=== PATIENT | female | born 1950 | race Caucasian/White ===

== ENCOUNTER 2019-11-02 20:28 | Inpatient (IN) | payer MEDICARE ==
[~2019-11-02] VITALS: Ht 167.6 cm; Wt 67.0 kg
--- NOTE | ~2019-11-02 | O ---
[facility] [place] [address] OPERATIVE REPORT Name: JIM RODRIGES Room #: 457-P [facility] IN ..#: [id number] Admission: 11/03/19 Attend Phys: Raúl Ahumada MD Discharge: Date of : 46 Report #: [id number] THIS REPORT FOR: cc: HEATHER - No family physician/PCP HEATHER - No family physician/PCP Kwesi Montes DO ~ CC: HEATHER physician/PCP Raúl Ahumada DATE OF SERVICE: 11/04/2019 PREOPERATIVE DIAGNOSES: 1. Left tibia shaft fracture. 2. Left distal radius fracture. POSTOPERATIVE DIAGNOSES: 1. Left tibia shaft fracture. 2. Left distal radius fracture. TITLE OF OPERATION: Left tibia fracture. PROCEDURES: 1. Closed reduction and intramedullary nail fixation. 2. Left distal radius closed reduction and short arm cast application. SURGEON: Kwesi Montes DO ASSISTANTS: None. ANESTHESIA: General. ANTIBIOTICS: 2 grams Ancef. ORTHOPEDIC IMPLANTS: Synthes EX tibial nail, size 11 mm x 330 mm. OPERATIVE INDICATIONS: The patient is a pleasant 69-year-old female who suffered a ground level fall and suffered a displaced left tibial shaft fracture. One week prior, she had taken a fall and had a displaced distal radius fracture. We reviewed her radiographs and discussed treatment options for both injuries. We also reviewed the risks, benefits, and alternatives to surgery. She demonstrated understanding and wished to proceed. OPERATIVE TECHNIQUE: The patient was met in the preoperative holding area and again the risks, benefits, and alternatives to surgery were reviewed with the patient. She again demonstrated understanding and wished to proceed with surgery. Surgical consent was checked for correctness. The operative extremity [address] [address] OPERATIVE REPORT Name: JIM RODRIGES Room #: 457-P [facility] IN ..#: [id number] Admission: 11/03/19 Attend Phys: Raúl Ahumada MD Discharge: Date of : 46 Report #: [id number] was initialed after verifying correct surgical site with the patient. DESCRIPTION OF PROCEDURE: The patient was then taken back to operative suite and placed on the operating table in supine position. She was administered a general anesthetic by the Department of Anesthesiology and given 2 grams of Ancef preoperatively. A timeout protocol was performed to verify the correct surgical site and procedure. All team members were in agreement. Tourniquet was placed about the patient's left thigh and the left lower extremity was then sterilely prepped and draped in the usual fashion. Surgery began by marking out planned surgical incision overlying the left leg. A 10 blade scalpel was then used to incise for a suprapatellar nail insertion. Bovie electrocautery was used to control hemostasis. Dissection was carried down through the quad tendon. A fracture hematoma was noted. The blunt trocar was then inserted through the patellofemoral joint and under fluoroscopic guidance, was directed onto the anterior tibia. Its position was checked both in the AP and lateral planes. The starting guidewire was then advanced and checked utilizing fluoroscopy. The opening reamer was then used to open the proximal tibia. The ball-tipped guidewire was then placed into the intramedullary canal and guided distally. Next, two percutaneous incisions were made at the fracture site and a periarticular reduction clamp was used to obtain near anatomic reduction of the fracture. The ball-tipped guidewire was then advanced across the fracture site into the distal tibia. Length measurements were taken. Next, the 8.5 mm reamer was used to ream the entirety of the tibia. Reaming was advanced up to 12 mm. An 11 x 330 mm nail was then selected and placed over the ball-tipped guidewire. It was then malleted into place under fluoroscopic guidance. The ball-tipped guidewire was then removed. Next, the radiolucent alignment jig was placed proximally and two medial to lateral interlocking screws were placed in the proximal aspect of the nail. Attention was then turned distally. Utilizing perfect confederated goshute technique, two medial to lateral interlocking screws were placed through the distal aspect of the nail distal to the fracture site. This secured fracture fixation. The wounds were thoroughly irrigated with normal saline. The wounds were then closed with a combination of subcuticular Vicryl, nylon, and yoav. Sterile dressing was then applied. At the conclusion of the tibial nailing procedure, her compartments were soft and supple. Next, attention was then turned to reduction of the distal radius. A previously placed sugar tong splint was then removed. Utilizing C-arm fluoroscopy, a closed reduction of the distal radius fracture was performed into acceptable intolerances. A well-padded short arm fiberglass cast was then placed. Post-casting radiographs were taken, which revealed maintenance of acceptable alignment. The patient was then awakened from general anesthesia and [address] [address] OPERATIVE REPORT Name: JIM RODRIGES Room #: 457-P ADM IN Ehsan.Kiko.#: [id number] Admission: 11/03/19 Attend Phys: Raúl Ahumada MD Discharge: Date of : 46 Report #: [id number] transferred to the postoperative area in stable condition. ESTIMATED BLOOD LOSS: 150 mL. COMPLICATIONS: None. SPECIMENS SENT TO PATHOLOGY: None. CONDITION: Stable. DISPOSITION: To the Postanesthesia Care Unit and then medical surgical floor. By: 0650 [id number] Kwesi Montes DO /iva
[~2019-11-02 20:28] MED LIST: ADVAIR HFA115 MCG/21 INH; BACLOFEN 10 MG10 MG PO; BENADRYL25 MG PO; CALCIUM 600 +1 EAC1 PO; CARDIZEM CD240 MG PO; CENTRUM SILVER1 EAC4 PO; DEMEROL50 MG PO; FENTANYL 1100 MCG/HR TRANSDERM; LANOXIN 0.250.25 MG PO; LIORESAL 10 MG10 MG PO; LISINOPRIL20 MG PO; LOMOTIL 2.5-0.01 TAB PO; NEURONTIN600 MG PO; PERCOCET PO; PRINIVIL20 MG PO; PROAIR HFA8.5 GM INH; PROVERA5 MG PO; PROZAC 10 MG CA10 MG PO; TOPROL XL50 MG; ULTRAM 50MG TAB50 MG PO; VIIBRYD40 MG PO; VITAMIN B-121000 MCG PO; VITAMIN D-32000 UNIT PO; XANAX 0.5 MG0.5 M1 PO; ZOCOR40 MG PO
[2019-11-02 20:29] VITALS: BP 130/58
[2019-11-02 21:59] LABS: ABSOLUTE NEUTROPHILS 10.7 thou/uL (1.4-8.2); BASOPHILS 0.4 % (0.0-2.0); EOSINOPHILS 1.8 % (0.0-3.0); HEMOGLOBIN 11.8 gm/dL (12.0-15.0); LYMPHOCYTES 12.7 % (24.0-44.0); MCH 31.1 pg (26.0-34.0); MCHC 32.8 g/dL (28.0-37.0); MONOCYTES 5.5 % (1.0-8.0); PLATELET COUNT 201 thou/uL (150-400); POLYS 79.6 % (36.0-66.0); RBC 3.79 mil/uL (4.20-5.00); RDW 13.7 % (10.5-14.5); WBC 14.6 thou/uL (4.0-11.0)
[2019-11-02 22:10] LABS: CALCIUM 9.5 mg/dL (8.5-10.1); CREATININE 1.5 mg/dL (0.6-1.0); POTASSIUM 3.8 mmol/L (3.5-5.1)
[2019-11-02 23:12] LABS: BE(vivo) 1.5 mmol/L (-2 to +3); HCO3 27.3 mmol/L (22.0-26.0); PCO2 47.8 mmHg (35.0-45.0); PO2 101.7 mmHg (80.0-100.0); pH 7.374 (7.360-7.450); sO2 97.5 % (92.0-98.0)
[2019-11-02 23:58] VITALS: BP 117/39
[2019-11-03] VITALS (63 sets, daily range): BP systolic 35–142; BP diastolic 18–81
--- NOTE | 2019-11-03 01:47 | NUR ---
PT ARRIVED FROM ER AT 0040. PT SETTLED IN BED, ADMISSION ASSESMENT DONE. PT A&0X4. INITIAL VSS, LAST 3 BP HAD MAPS OF 50-58. PT WAS LETHARGIC BUT AROUSABLE. NS GOING AT 125ML/HR. PT COMPLAINED OF PAIN IN HER LEFT LOWER LEG. PT IS AFEBRILE ON 2L NC, WILL CONTINUE TO CLOSELY MONITOR
[2019-11-03 04:12] LABS: HEMATOCRIT 33.7 % (37.0-47.0); HEMOGLOBIN 11.2 gm/dL (12.0-15.0); MCH 31.8 pg (26.0-34.0); MCHC 33.3 g/dL (28.0-37.0); MCV 95.6 fL (80.0-100.0); RBC 3.53 mil/uL (4.20-5.00); RDW 13.8 % (10.5-14.5); WBC 8.7 thou/uL (4.0-11.0)
[2019-11-03 05:51] LABS: CALCIUM 9.1 mg/dL (8.5-10.1); CREATININE 1.4 mg/dL (0.6-1.0); POTASSIUM 3.3 mmol/L (3.5-5.1)
[2019-11-03 07:22] LABS: CHOLESTEROL 179 mg/dL (<200); HDL CHOLESTEROL 57 mg/dL (>40); LDL CHOLESTEROL 103 mg/dL (<100); TC:HDL 3.1 Ratio (Not establshd); TRIGLYCERIDE 97 mg/dL (<150); VLDL 19 mg/dL (<40)
--- NOTE | 2019-11-03 08:44 | NUR ---
chart review. per bedside nurse, pt going to or today rt left leg fx, already has fx left arm from last week fall per bedside nurse. will cont following as needed for dc needs.
--- NOTE | 2019-11-03 08:58 | EKG ---
[facility] [place] [address] ELECTROCARDIOGRAM REPORT Name: JIM RODRIGES Room #: 247-P ADM IN M.R.#: [id number] Admission: 11/03/19 Attend Phys: Raúl Ahumada MD Discharge: Date of : 46 Report #: [id number] THIS REPORT FOR: cc: HEATHER - No family physician/PCP HEATHER - No family physician/PCP Spike Guzman MD [facility] THIS REPORT FOR: //name// [facility] ED Test Date: 2019-11-03 Test Time: 00:21:43 Pat Name: JIM RODRIGES Department: Room: [facility] Gender: F Application Helper: CORINNE : 1950 Requested By: Gianni Clayton Order Number: [id number] MD: Spike Guzman Measurements Intervals [place] Rate: 75 P: 64 TX: 160 QRS: 33 QRSD: 75 T: -20 QT: 382 QTc: 427 Interpretive Statements Sinus rhythm Nonspecific ST segment abnormality Compared to ECG 12/12/2016 08:38:24 Prolonged QT interval no longer present Electronically Signed On 11-03-2019 8:58:37 CDT by Spike Guzman [email or web address] <ELECTRONICALLY SIGNED> By: Spike Guzman MD, [facility] 11/03/19 0858 0021 0021 Spike Guzman MD, [facility] /EPI
--- NOTE | 2019-11-03 09:00 | NUR ---
xray here for LUE xrays.
--- NOTE | 2019-11-03 10:20 | NUR ---
ortho here. spend a long time with pt going over options. pt decided to have surgury. awaiting covid test..
--- NOTE | 2019-11-03 16:00 | NUR ---
dr. hinds called, pt extremely anxious. MD will put in orders. 1640 xanax given for anxiety. pt denies pain.
--- NOTE | 2019-11-04 05:11 | NUR ---
PT TRANSFERRED TO ROOM 447 VIA BED WITH ALL PERSONAL BELONGINGS.
--- NOTE | 2019-11-04 05:58 | NUR ---
PT TRANSFERRED FROM ICU INTO ROOM 447. ARRIVED AT ABOUT 0505 HRS. SHE IS SLEEPING. SHE WOKE UP MOMENTARILY AFTER ABOUT 20MINUTES AND ASKED FOR A WARM BLANKET. PT ORIENTED TO ROOM AND STAFF.SHE IS A LITTLE BIT CONFUSED AND SEEMS ANXIOUS.IVF INFUSING VIA RFA. PT OBSERVED REPOSITIONING SELF TO THE RIGHT SIDE. SHE IS USING HER CALL LIGHT. LEFT HAND AND LEFT LEG ARE BOTH SPLINTED. LEFT LEG ELEVATED ON PILLOW.CALL LIGHT WITHIN REACH.
[2019-11-04] MEDS ORDERED: LOSARTAN-HCTZ1 EACH PO (08:22)
[2019-11-04] MEDS ORDERED: FENTANYL1 EAC3 TRANSDERM (08:25)
[2019-11-04 09:17] VITALS: BP 132/66
[2019-11-04 17:22] LABS: HEMATOCRIT 26.1 % (37.0-47.0); MCH 31.5 pg (26.0-34.0); MCHC 33.7 g/dL (28.0-37.0); MCV 93.5 fL (80.0-100.0); RBC 2.8 mil/uL (4.20-5.00); RDW 13.8 % (10.5-14.5); WBC 10.7 thou/uL (4.0-11.0)
[2019-11-04 17:27] VITALS: BP 128/54
[2019-11-04 17:27] LABS: HEMOGLOBIN 8.8 gm/dL (12.0-15.0)
[2019-11-04 17:32] LABS: ALBUMIN 3.1 g/dL (3.4-5.0); CALCIUM 7.4 mg/dL (8.5-10.1); CREATININE 0.6 mg/dL (0.6-1.0); MAGNESIUM 1.4 mg/dL (1.8-2.4); POTASSIUM 3.2 mmol/L (3.5-5.1); TOTAL BILIRUBIN 0.3 mg/dL (0.2-1.0); TOTAL PROTEIN 6.2 g/dL (6.4-8.2)
[2019-11-04 18:13] VITALS: BP 128/54
--- NOTE | 2019-11-04 18:28 | NUR ---
PT CALLED OUT AND WHEN ENTERING THE ROOM PATIENT WAS "JIBBERING AND NOT ABLE TO SPEAK. RN INITIATED A [employer] SCORE WITH WEAK HARBOR TUG CAPTAIN ON HT ER. HAND. A CODE STROKE WAS CALLED. PER DR. AREVALO PT PRESENTS MORE A ANXIETY ATTACK THEN A STROKE AND CLEARED HER WITH NO CT BUT ORDERED NEUROVASCULAR CHECKS. SEE NURSING INTERVENTION FOR FREQUENCY. OF 1829 PT IS SCORING 0. VITALS STABLE BESIDES TACHY AT 116 PROVIDER AWARE WITH NO FURTHER ORDERS. PAIN UNDER CONTROL WITH PAIN MEDICATION ON BOARD. WILL CONTINUE TO MONITOR.
--- NOTE | 2019-11-04 18:45 | NUR ---
PT IS ALERT TO SELF AND PLACE. SEE POST OP NOTES PRETAINING TO SURGERY. PT HAD STABLE VITAL SIGNS POST SURGERY. PT HAD AN ANXIETY ATTACK WITH STROKE TEAM CALLED POST SURGERY. PATIENT RECOVERED WELL FROM ANXIETY ATTACK AND ZACK TEST WAS DONE. PT IS INCONTINENT TO BOWEL/BLADDER. FALL PRECAUTIONS IN PLACE, WILL CONTINUE TO MONITOR.
[2019-11-04 20:06] VITALS: BP 158/59
--- NOTE | 2019-11-05 05:29 | NUR ---
PT LYING IN BED. VOIDING PER BEDPAN. LORTAB PROVIDING PAIN RELIEF. RESTING COMFORTABLY. NO NEEDS VOICED. CALL LIGHT WITHIN REACH. FREQUENT OBSERVATION.
[2019-11-05 05:41] LABS: HEMOGLOBIN 8.5 gm/dL (12.0-15.0)
[2019-11-05 05:52] LABS: POTASSIUM 3.1 mmol/L (3.5-5.1)
[2019-11-05 07:40] VITALS: BP 143/63
[2019-11-05 15:19] VITALS: BP 158/73
--- NOTE | 2019-11-05 16:18 | NUR ---
ASSUMMED PT CARE AT APPROXIMATELY 0700. PT A&O X4 AND FORGETFUL AT TIMES . ASSESSMENT CHARTED. FALL PRECAUTIONS IN PLACE. PT DENIES HAVING CHEST PAIN. PT DENIES HAVING SOB. PT STATED SHE HAD PAIN IN HER UPPER AND LOWER L EXTREMITY. PT RECEIVED ANALGESICS. PT RECEIVED ICE PACKS. PT STATED ANALGESICS HELPED RELEIVE PAIN. ELECTROLYTE PROTOCOL FOLLOWED. INFORMED DR. CHOI OF PT HAVING FREQUENT LIQUID STOOLS. DR. CHOI ORDERED C.DIFF TEST. AWAITING PT TO HAVE BM. PT WORKED C PHYSICAL THERAPY. PT MODERATE ASSIST TO CHAIR. PT TRANSFERING TO . GAVE REPORT TO RN AT APPROXIMATELY 1615. RN STATED UNDERSTANDING AND DENIED HAVING FURTHER CONCERNS. PT RESTING IN BED. PT DENIES HAVING FURTHER CONCERNS.
--- NOTE | 2019-11-05 18:29 | NUR ---
pt was admitted to room 457 at 1730.
[2019-11-05 19:41] VITALS: BP 154/73
--- NOTE | 2019-11-06 05:17 | NUR ---
ASSUMED PT CARE AROUND 1930. AXOX4. CALLS FOR ASST. ISO FOR C.DIFF. STOOL COLLECTED AND SENT. VSS. L CAST,LLE DRESSING CDI. NO S/S ACUTE DISTRESS NOTED OR REPORTED AT THIS TIME. WILL CONT TO MONITOR FOR ANY CHANGES IN CONDITION.
[2019-11-06 07:18] VITALS: BP 154/75
[2019-11-06 14:39] LABS: ABSOLUTE NEUTROPHILS 11.6 thou/uL (1.4-8.2); BASOPHILS 0.4 % (0.0-2.0); EOSINOPHILS 0.4 % (0.0-3.0); HEMATOCRIT 26.1 % (37.0-47.0); HEMOGLOBIN 8.9 gm/dL (12.0-15.0); LYMPHOCYTES 9.2 % (24.0-44.0); MCH 31.8 pg (26.0-34.0); MCHC 34.1 g/dL (28.0-37.0); MCV 93.1 fL (80.0-100.0); MONOCYTES 4.5 % (1.0-8.0); PLATELET COUNT 159 thou/uL (150-400); POLYS 85.5 % (36.0-66.0); RDW 13.9 % (10.5-14.5); WBC 13.6 thou/uL (4.0-11.0)
[2019-11-06 14:47] LABS: CALCIUM 8.2 mg/dL (8.5-10.1); CREATININE 0.8 mg/dL (0.6-1.0); POTASSIUM 3.1 mmol/L (3.5-5.1)
[2019-11-06 15:18] VITALS: BP 158/74
--- NOTE | 2019-11-06 18:18 | NUR ---
ASSUMED CARE OF PATIENT AT APPROX. 0800. ASSESSMENT CHARTED. MEDS GIVEN PER MAR. VS REMAIN STABLE. PATIENT C/O PAIN ON LSIDE FOCUSING ON ELBOW AND ANKLE AND CONTINUES TO C/O PAIN THROUGHOUT DAY WITH LITTLE TO NO PAIN RELIEF. APPETITE IS LESS THAN ADEQUATE; REQUESTS BEDPAN. WORKED WITH PT/OT BUT DID NOT DO MUCH D/T BEING TOO TIRED. VOICED "I DID NOT SLEEP LAST NIGHT". CONTINUES TO HAVE LOOSE STOOLS; C-DIFF RESULTS ARE POSITIVE. PATIENT VOICED WANTING TO REST TODAY SINCE SHE DID NOT GET MUCH SLEEP LAST NIGHT. FALL PRECAUTIONS IN PLACE. WILL CONTINUE TO MONITOR
--- NOTE | 2019-11-06 19:26 | NUR ---
I AGREE WITH NURSING ASSESSMENT DONE BY ASHLEY/SATELLITE DISH INSTALLER AND NURSING NOTE.
[2019-11-06 19:28] VITALS: BP 169/93
--- NOTE | 2019-11-07 05:06 | NUR ---
Assumed pt care at 1900. A/OX4,VSS. C/o pain to LUE/LLE,medicated per EMAR w/some relief reported,icepacks provided per request. Cast in place on L arm,CMS intact,Dsg to LLE C/D/I,edema on foot with CMS intact. Pt's on isolation for cdiff/MRSA, having frequent loose stools per bedpan. PIV in place on LUE SL.Fall precautions in place,calls approp for help.
[2019-11-07 05:29] LABS: CALCIUM 8.2 mg/dL (8.5-10.1); CREATININE 0.8 mg/dL (0.6-1.0); HEMATOCRIT 25.5 % (37.0-47.0); HEMOGLOBIN 8.7 gm/dL (12.0-15.0); MCH 32.2 pg (26.0-34.0); MCHC 33.9 g/dL (28.0-37.0); MCV 94.8 fL (80.0-100.0); POTASSIUM 3.6 mmol/L (3.5-5.1); RBC 2.69 mil/uL (4.20-5.00); RDW 13.8 % (10.5-14.5); WBC 9.4 thou/uL (4.0-11.0)
[2019-11-07 06:28] LABS: % SATURATION 12 % (20-39); IRON 25 ug/dL (50-170); TIBC 208 ug/dL (250-450)
[2019-11-07 06:34] LABS: ABSOLUTE RETIC COUNT 0.0675 10^6/uL; OBSERVED RETIC COUNT 2.47 % (0.6-2.6)
[2019-11-07 10:33] VITALS: BP 140/75
--- NOTE | 2019-11-07 13:11 | NUR ---
Received awake on bed. Due medications given as prescribed, able to swallow meds w/o difficulty. On room air. Vital signs stable. On regular diet, tolerating well; no nausea, no vomiting and no abdominal pain noted. On MS, not on telemetry, no complains of chest pain, crushing sensation and heaviness. Continent of bowel and bladder, able to use bedside commode; using bedpan at times. With SL at R upper arm- intact and flushing well. With cast at L arm- intact, able to wiggle and move fingers; no signs of infection and bleeding noted. L foot with mild edema noted, kept elevated, ice packs in place. Falls bundle in place. Maintained in isolation due to Cdiff and MRSA. Complained of pain, due PRN pain meds given as prescribed. Pt seen and examined by physical therapist, able to sit out on the chair and pivot when using the bedside commode, tolerated session well. To continue monitoring patient.
--- NOTE | 2019-11-07 14:08 | NUR ---
CM FOLLOWED UP WIDARLENE PT THIS AM AND SHE INDICATED THAT SHE HAD REVIEWED SNF LIST AND WANTED REFERRAL SENT TO [facility] FOR REVIEW FOR POSSIBLE ADMISSION. REFERRAL SENT.
[2019-11-07 14:47] VITALS: BP 147/76
--- NOTE | 2019-11-07 15:37 | NUR ---
FAXED REFERRAL TO [facility] RECEIVED CONFIRMATION AND LEFT MSG WITH JAMAR IN ADM.
[2019-11-07 20:14] VITALS: BP 165/95
--- NOTE | 2019-11-08 06:00 | NUR ---
Pt. rested quietly during the night when checked on during frequent rounds. She has been given po pain meds for c/o pain to her left lower leg and arm (see emar) with some relief noted. Pt. c/o not being able to sleep at night. Prn sleeping pill was given (see emar) with little effect. Bed alarm is on.
[2019-11-08 09:30] VITALS: BP 150/64
--- NOTE | 2019-11-08 13:18 | NUR ---
Received awake on bed. Due medications given as prescribed, able to swallow meds w/o difficulty. On room air. Vital signs stable. Assisted in ADLs. On MS, not on telemetry; no complains of chest pain, crushing sensation and heaviness. On regular diet- tolerating well; no nausea, no vomiting and no abdominal pain noted. Contient of bowel and bladder, able to use bedside commode with minimum assist, gait belt and walker; using bedpan at times as well. With SL at R upper arm- intact and flushing well. With splint at L arm- C/D/I. With dressing at L Leg- pt said physician has not changed it since Wednesday- called Dr Montes's office re: dressing change- a/w call back re: instructions. Maintained on isolation due to MRSA and Cdiff. Able to sit out on chair and walk around the room with PT as reported. Pt still complaining of constant pain with current pain meds, also requested if Prozac can be resumed- Dr Rodriguez informed, a/w orders. To continue monitoring patient. Possible discharge to SNF, a/w CM input.
--- NOTE | 2019-11-08 13:48 | NUR ---
OT ORDERED. OT SAW PT. UPDATED CLINICAL AND THERAPY NOTES SENT TO [place]. WE ARE AWAITING AUTH. CM TO FOLLOW INDICATED WITH DC PLANNING.
[2019-11-08 14:40] VITALS: BP 160/77
[2019-11-08 15:59] VITALS: BP 155/97
--- NOTE | 2019-11-08 16:27 | NUR ---
FAXED CLINICAL UPDATE AND TODAY'S PT/OT THERAPY NOTES SPOKE WITH JAMAR IN ADM AT [facility] SHE RECEIVED UPDATE AND SUBMITTED IT FOR AUTH.
[2019-11-08 19:48] VITALS: BP 166/91
--- NOTE | 2019-11-09 03:44 | NUR ---
ASSUMED PT CARE AROUND 1930. AXOX4. ELEVATED BP REPORTED TO PRICING CLERK ART PREPARATOR AND HOME BP MEDS RESTARTED. NO S/S ACUTE DISTRESS NOTED OR REPORTED AT THIS TIME. WILL CONT TO MONITOR FOR ANY CHANGES IN CONDITION.
[2019-11-09 05:35] VITALS: BP 151/87
[2019-11-09 08:42] VITALS: BP 146/69
[2019-11-09 10:28] LABS: HEMATOCRIT 31.2 % (37.0-47.0); HEMOGLOBIN 10.3 gm/dL (12.0-15.0); MCH 31.3 pg (26.0-34.0); MCV 94.9 fL (80.0-100.0); RBC 3.29 mil/uL (4.20-5.00); RDW 14.4 % (10.5-14.5); WBC 8.5 thou/uL (4.0-11.0)
[2019-11-09 10:44] LABS: CALCIUM 8.9 mg/dL (8.5-10.1); CREATININE 0.8 mg/dL (0.6-1.0); MAGNESIUM 1.6 mg/dL (1.8-2.4); POTASSIUM 3.1 mmol/L (3.5-5.1)
[2019-11-09] MEDS ORDERED: FIRVANQ50 MG/1 ML PO (12:31)
--- NOTE | 2019-11-09 14:09 | NUR ---
INSURANCE AUTH HAD BEEN RECEIVED FOR PT TO DC TO [facility] THIS DAY. CHART COPY ORDERED. ORDERS FAXED. NURSE CALLED REPORT TO FACILITY. [facility]AN TRANSPORT ARRAGNED FOR [phone]. PT NOTIFIED. NO OTHER CM INTERVENTION INDICATED. CASE CLOSED.
--- NOTE | 2019-11-09 16:31 | NUR ---
PATIENT TRANSFERES VIA WHEELCHAIR AT 1600 WITH ALL PATIENT BELONGINGS. TRANSFER PACKET SENT WITH TRANSPORT TEAM. PATIENT TRANSFERING TO [facility].
[2019-11-09] MEDS ORDERED: XANAX 0.5 MG0.5 M1 PO (17:23)
[2019-11-09] MEDS ORDERED: NORCO 7.5-3251 EACH PO (17:23)
== END 2019-11-09 16:00 | DRG 492 ==
LOC: ER 20:28 → ICU 11-03 00:20 → EROBS 11-03 00:20 → ICU 11-03 00:36 → 4S 11-04 05:16 → 4W 11-05 17:09
PROVIDERS: Emergency Medicine; Internal Medicine; Nurse Practitioner Family; Orthopaedic Surgery; ADMIT Hospitalist; ATTEND Hospitalist
PROC: 2W3RX1Z Immobilization of Left Lower Leg using Splint (ICD-10-PCS; principal; 2019-11-03)
PROC: 0QSH36Z Reposition Left Tibia with Intramedullary Internal Fixation Device, Percutaneous Approach (ICD-10-PCS; 2019-11-04)
DX: S82.202A Unspecified fracture of shaft of left tibia, initial encounter for closed fracture (principal); J96.01 Acute respiratory failure with hypoxia; J96.02 Acute respiratory failure with hypercapnia; S52.502A Unspecified fracture of the lower end of left radius, initial encounter for closed fracture; S52.202A Unspecified fracture of shaft of left ulna, initial encounter for closed fracture; N17.9 Acute kidney failure, unspecified; A04.72 Enterocolitis due to Clostridium difficile, not specified as recurrent; G93.40 Encephalopathy, unspecified; Z20.828 Contact with and (suspected) exposure to other viral communicable diseases; G25.81 Restless legs syndrome; I10 Essential (primary) hypertension; E78.00 Pure hypercholesterolemia, unspecified; F32.9 Major depressive disorder, single episode, unspecified; F41.9 Anxiety disorder, unspecified; J44.9 Chronic obstructive pulmonary disease, unspecified; S82.891A Other fracture of right lower leg, initial encounter for closed fracture; M54.9 Dorsalgia, unspecified; S82.892A Other fracture of left lower leg, initial encounter for closed fracture; G89.4 Chronic pain syndrome; M48.00 Spinal stenosis, site unspecified; M81.0 Age-related osteoporosis without current pathological fracture; Z96.649 Presence of unspecified artificial hip joint; D64.9 Anemia, unspecified; E87.6 Hypokalemia; E83.42 Hypomagnesemia; Z90.49 Acquired absence of other specified parts of digestive tract; Z88.6 Allergy status to analgesic agent; Z88.1 Allergy status to other antibiotic agents; Z88.8 Allergy status to other drugs, medicaments and biological substances; Z47.89 Encounter for other orthopedic aftercare; Z87.891 Personal history of nicotine dependence; W18.39XA Other fall on same level, initial encounter; Y93.89 Activity, other specified; Y92.89 Other specified places as the place of occurrence of the external cause; Y99.8 Other external cause status
CPT/HCPCS: 10047; 10078; 10102; 50101; 50133; 50386; 51412; 56524; 56525; 57091; 57179; 5741; 5743; 57860; 58301; 62110; 62900; 70005